=== PATIENT | female | born 1995 | race Hispanic/Latino ===

== ENCOUNTER 2022-08-24 11:12 | Emergency (ER) | payer SELFPAY ==
[~2022-08-24] VITALS: Ht 165.1 cm; Wt 97.5 kg
[2022-08-24] MEDS ORDERED: DEXAMETHASONE SOD PHOS 10 MG/1 ML VIAL IM ONE (13:15)
[2022-08-24] MEDS: ALBUTEROL/IPRATROPIUM 3 ML NEB NEB ONE ×2 (13:30→14:04)
[2022-08-24] MEDS ORDERED: PREDNISONE20 MG PO (13:45)
[2022-08-24] MEDS ORDERED: VENTOLIN HFA18 GM INH (13:45)
[2022-08-24] MEDS ORDERED: AZITHROMYCIN250 MG PO (13:45)
[2022-08-24] MEDS ORDERED: ALBUTEROL SULFATE HFA 8GM INHALATION AEROSOL INH PRN (14:00)
== END 2022-08-24 14:11 | disposition home or self-care (01) ==
LOC: ER 11:52
DX: J45.901 Unspecified asthma with (acute) exacerbation (principal)
CPT/HCPCS: 71045; 81025; 94640; 94799; 99283; J1100

== ENCOUNTER 2023-01-05 19:30 | Emergency (ER) | payer SELFPAY ==
[~2023-01-05] VITALS: Ht 165.1 cm; Wt 97.5 kg
[~2023-01-05 19:30] MED LIST: AZITHROMYCIN250 MG PO; PREDNISONE20 MG PO; VENTOLIN HFA18 GM INH
[2023-01-05] MEDS ORDERED: PREDNISONE 20 MG TAB PO STA (19:55)
[2023-01-05] MEDS ORDERED: ALBUTEROL SULF 0.083% NEB SOLN 3 ML NEB NEB STA (19:55)
[2023-01-05] MEDS ORDERED: IPRATROPIUM BROMIDE 0.02% 2.5 ML NEB NEB ONE (20:15)
[2023-01-05 20:30] VITALS: PULSE 77; RESP 18; O2SAT 97
[2023-01-05 20:45] VITALS: PULSE 81; RESP 18
[2023-01-05] MEDS ORDERED: PREDNISONE20 MG PO (20:49)
[2023-01-05] MEDS ORDERED: AZITHROMYCIN250 MG PO (20:49)
[2023-01-05] MEDS ORDERED: VENTOLIN HFA18 GM INH (20:49)
[2023-01-05 21:01] VITALS: O2SAT 100
== END 2023-01-05 21:01 | disposition home or self-care (01) ==
LOC: ER 19:50
DX: R06.00 Dyspnea, unspecified (principal); R07.89 Other chest pain; J45.901 Unspecified asthma with (acute) exacerbation; R05.9 Cough, unspecified
CPT/HCPCS: 71046; 93005; 94640; 94799; 99283; J7512